=== PATIENT | male | born 1990 | race Caucasian/White ===

== ENCOUNTER 2017-05-20 13:57 | Emergency (ER) | payer OTHER ==
[~2017-05-20] VITALS: Ht 175.3 cm; Wt 63.0 kg
[2017-05-20 13:57] VITALS: BP 134/64
[2017-05-20] MEDS ORDERED: IBUP-1022 PO (15:00)
[2017-05-20] MEDS ORDERED: SILVER SULFADIAZINE 1% CR 50 GM JAR TOP ONE (15:15)
== END 2017-05-20 15:24 | disposition home or self-care (01) ==
LOC: M ED 14:54
DX: T23.221A Burn of second degree of single right finger (nail) except thumb, initial encounter (principal); X19.XXXA Contact with other heat and hot substances, initial encounter; Y92.89 Other specified places as the place of occurrence of the external cause; Y99.9 Unspecified external cause status; Y93.9 Activity, unspecified